=== PATIENT | female | born 1945 | race Caucasian/White ===

== ENCOUNTER 2018-07-09 11:33 | Inpatient (IN) ==
[2018-07-09] MEDS ORDERED: Metoprolol Tartrate 25 MG Tablet PO ONE (12:30)
[2018-07-09] MEDS ORDERED: Sodium Chlor 0.9% Inj 500 ML IV.CONT ONE (12:30)
[2018-07-09] MEDS ORDERED: Chlorhexidine Gluconate 2% 1 Pack (2 Cloths) TOPICAL ONE (12:30)
[2018-07-09] MEDS ORDERED: fentaNYL Citrate Inj 100 MCG/2 ML Ampul ONE (12:43)
[2018-07-09] MEDS ORDERED: fentaNYL Citrate Inj 250 MCG/5 ML Ampul ONE (12:43)
[2018-07-09] MEDS ORDERED: ceFAZolin Inj 1 GM in Sodium Chlor 0.9% Inj 100 ML IV.SIG SCH (13:00)
[2018-07-09] MEDS ORDERED: Glycopyrrolate Inj 1 MG/5 ML Syringe IV.PUSH ONE (13:35)
[2018-07-09] MEDS ORDERED: Phenylephrine/NS 1000 MCG/10ML Syringe IV.PUSH ONE (13:35)
[2018-07-09] MEDS ORDERED: Lidocaine PF 1% Inj 5 ML Syringe OTHER ONE (13:35)
[2018-07-09] MEDS ORDERED: Neostigmine Inj 5 MG/5 ML Syringe IV.PUSH ONE (13:35)
[2018-07-09] MEDS ORDERED: Lidocaine 1% Inj 50 ML Vial ONE (14:00)
[2018-07-09] MEDS ORDERED: Sugammadex Inj 200 MG/2 ML Vial IV.PUSH ONE (14:45)
[2018-07-09] MEDS ORDERED: Potassium Chlor 40 mEq Premix 40 MEQ/100 ML PIGGYBACK IV.SIG PRN (14:49)
[2018-07-09] MEDS ORDERED: Potassium Chlor 20 mEq Premix 20 MEQ/100 ML PIGGYBACK IV.SIG PRN (14:49)
[2018-07-09] MEDS ORDERED: *morphine SULFATE 4 MG/ML PERIprocedure ONLY ONE (15:23)
[2018-07-09] MEDS ORDERED: KCL 20 mEq/D5W/LR Inj 1,000 ML ONE (15:47)
[2018-07-09] MEDS: KCL 20 mEq/D5W/LR Inj 1,000 ML IV.CONT SCH (15:48)
[2018-07-09] MEDS: Dextrose 5%/NaCl 0.9% Inj 1,000 ML IV.SIG SCH ×2 (15:51→20:12)
[2018-07-09 16:00] LABS: Baso % (Auto) 0.3 % (0.0-2.0); Eos # (Auto) 0.1 th/mm3 (0.0-0.4); Eos % (Auto) 0.8 % (0.0-4.0); Hemoglobin 11.2 gm/dL (11.6-15.3); Lymph # (Auto) 1.6 th/mm3 (1.0-4.8); Lymph % (Auto) 18.3 % (9.0-44.0); Mean Corpuscular Hemoglobin 30.5 pg (27.0-34.0); Mean Corpuscular Volume 89.9 fL (80.0-100.0); Mean Platelet Volume 8.2 fL (7.0-11.0); Mono # (Auto) 0.6 th/mm3 (0.0-0.9); Neut # (Auto) 6.3 th/mm3 (1.8-7.7); Neut % (Auto) 73.6 % (16.0-70.0); Platelet Count 257 th/mm3 (150-450); Red Blood Count 3.67 mil/mm3 (4.00-5.30); Red Cell Distribution Width 13.2 % (11.6-17.2); White Blood Count 8.5 th/mm3 (4.0-11.0)
[2018-07-09 16:16] LABS: Carbon Dioxide 25.4 meq/L (21.0-32.0)
--- NOTE | 2018-07-09 16:49 | MP ---
cc: Jl Marie MD,Jl Dowd,Reji Domínguez,David MILLAN DATE OF OPERATION: 07/09/2018 PREOPERATIVE DIAGNOSIS: Rectal prolapse. POSTOPERATIVE DIAGNOSIS: Rectal prolapse. PROCEDURE PERFORMED: Altemeier perineal proctectomy. ANESTHESIA: General endotracheal. SURGEON: Jl Marie MD [employer] INSPECTOR: Kashif Fernandez MD ESTIMATED BLOOD LOSS: Minimal. OPERATIVE FINDINGS: This 73-year-old patient had a rectal prolapse about 8 years ago and was treated by me with an Altemeier perineal proctectomy. At that time, we took about close to 2 feet of rectum and colon from the perineum. She did well for 8 years, but has remained constipated through the years and has been on stool softeners, but has not really changed her constipation at all. She was seen in the office with a recurrent rectal prolapse. Again, it was a full rectal prolapse, approximately 4 inches. At surgery, a perineal rectosigmoidectomy was done of about 4-6 inches of the colon and anastomosis was done. OPERATIVE TECHNIQUE: The patient was placed on the table in the supine position. After adequate general endotracheal anesthesia, the legs were placed in exaggerated lithotomy position [facility]. The perineum and perianal region and buttocks were prepped and draped in the usual manner. The rectum was prolapsed and then injected circumanally around the dentate line with 1% Xylocaine with epinephrine injecting 40 mL circumferentially. Next, the mucosa was incised at the dentate line with electrocautery going through the mucosa and bowel wall and eventually entering the cul-de-sac anteriorly. Once this was done, the colon was disconnected circumferentially and then the remainder of the prolapsing colon was prolapsed out of the perineum. Several large appendices epiploicae were excised with electrocautery and then the mesentery was successively clamped, cut, and ligated, putting traction on the sigmoid colon. Once we were certain that the sigmoid colon was prolapsed to its full extent and there was no redundancy left in the sigmoid colon, the mesentery was divided at the level of the anal muscles. Next, the bowel was reanastomosed to the levator muscles after plicating the levator muscles posteriorly in a parked postanal repair fashion using several interrupted 0 Vicryl [id number]-vi-kwpld sutures. Once this was done, the anastomosis was done anteriorly and posteriorly with interrupted 3-0 Vicryl gexjli-zl-iclgv sutures and then laterally with interrupted 3-0 Vicryl yrkrwk-gs-lzuaw sutures. Then, each quadrant was sutured with interrupted 3-0 Vicryl kqwuev-dw-jdfsv sutures, creating the coloanal anastomosis. Once this was completed, the bowel viability was excellent and there was no tension on the anastomosis. Dressings were applied. Sponge and instrument counts were reported as correct. Estimated blood loss was minimal. The patient tolerated the procedure well and left the operating room in good condition. MD MANDY Parrish/fox , 03:19 PM , 03:25 PM
[2018-07-09] MEDS: Hydroxychloroquine 200 MG Tablet PO SCH (20:14)
[2018-07-09] MEDS ORDERED: VERAPAMIL 360 MG PO SCH (21:00)
[2018-07-09] MEDS ORDERED: Zolpidem Tartrate 5 MG Tablet PO PRN (21:00)
[2018-07-09] MEDS: ceFAZolin 2 GM Premix Inj 2 GM/50 ML PIGGYBACK IV.SIG SCH (22:23)
[2018-07-09] MEDS: Morphine Inj 4 MG/ML Vial IV.PUSH PRN (22:40)
[2018-07-09 23:09] LABS: Alanine Aminotransferase 20 U/L (10-53); Albumin 3.2 g/dL (3.4-5.0); Alkaline Phosphatase 59 U/L (45-117); Anion Gap 6 meq/L (5-15); Aspartate Aminotransferase 18 U/L (15-37); Blood Urea Nitrogen 13 mg/dL (7-18); Calcium 7.9 mg/dL (8.5-10.1); Chloride 109 meq/L (98-107); Glomerular Filtration Rate 78 mL/min (>89); Glucose,Random 153 mg/dL (74-106); Potassium 4.1 meq/L (3.5-5.1); Sodium 141 meq/L (136-145); Total Protein 6.3 g/dL (6.4-8.2)
[2018-07-10] MEDS: KCL 20 mEq/D5W/LR Inj 1,000 ML IV.CONT SCH ×5 (00:26→15:13)
[2018-07-10] MEDS: Morphine Inj 4 MG/ML Vial IV.PUSH PRN ×5 (02:28→12:19)
[2018-07-10] MEDS: Dextrose 5%/NaCl 0.9% Inj 1,000 ML IV.SIG SCH ×2 (03:46→11:50)
[2018-07-10 04:29] LABS: Hematocrit 33.6 % (35.0-46.0); Hemoglobin 11.4 gm/dL (11.6-15.3); Lymph # (Auto) 0.6 th/mm3 (1.0-4.8); Lymph % (Auto) 6.9 % (9.0-44.0); Mean Corpuscular HGB Conc 33.8 % (32.0-36.0); Mean Corpuscular Hemoglobin 29.9 pg (27.0-34.0); Mean Corpuscular Volume 88.6 fL (80.0-100.0); Mean Platelet Volume 8.1 fL (7.0-11.0); Mono # (Auto) 0.6 th/mm3 (0.0-0.9); Mono % (Auto) 7.4 % (0.0-8.0); Neut # (Auto) 7.4 th/mm3 (1.8-7.7); Neut % (Auto) 85.7 % (16.0-70.0); Platelet Count 270 th/mm3 (150-450); Red Cell Distribution Width 13.4 % (11.6-17.2); White Blood Count 8.6 th/mm3 (4.0-11.0)
[2018-07-10] MEDS: ceFAZolin 2 GM Premix Inj 2 GM/50 ML PIGGYBACK IV.SIG SCH ×2 (05:16→15:12)
[2018-07-10] MEDS: Lisinopril 20 MG Tablet PO SCH (08:00)
[2018-07-10] MEDS: Tolterodine Tartrate LA 4 MG Capsule PO SCH (08:00)
[2018-07-10] MEDS: Sertraline 100 MG Tablet PO SCH (08:00)
[2018-07-10] MEDS: Verapamil SR 240 MG Tablet PO SCH (08:01)
[2018-07-10] MEDS: Hydroxychloroquine 200 MG Tablet PO SCH ×2 (08:01→22:03)
[2018-07-10] MEDS: Doxazosin 1 MG Tablet PO SCH (08:01)
[2018-07-10] MEDS: Pantoprazole Inj 40 MG Vial IV.PUSH SCH (08:02)
[2018-07-10] MEDS ORDERED: Estrogens Congugated Vag Cream w/app 30 GM Tube VAGINAL SCH (09:00)
[2018-07-10] MEDS ORDERED: SOLIFENACIN 5 MG PO SCH (09:00)
[2018-07-10] MEDS: predniSONE 10 MG Tablet PO SCH ×2 (14:42→22:03)
--- NOTE | 2018-07-10 15:03 | P.PNCS ---
Subjective Colorectal Surgery Post Op Day #: 1 Interval history: No N or V. Tolerating FLD. No BMs. Lyn D/C'd Objective Result Diagrams: 07/10/18 04:00 07/09/18 22:17 Objective Remarks: Abd: soft,flat Rectum: not examined. Assessment and Plan - Plan Advance diet Transfer to floor Probable D/C tomorrow
[2018-07-11 05:09] LABS: Baso % (Auto) 0.5 % (0.0-2.0); Eos # (Auto) 0.1 th/mm3 (0.0-0.4); Eos % (Auto) 1.6 % (0.0-4.0); Hematocrit 32.9 % (35.0-46.0); Hemoglobin 10.8 gm/dL (11.6-15.3); Lymph # (Auto) 1.8 th/mm3 (1.0-4.8); Lymph % (Auto) 19.8 % (9.0-44.0); Mean Corpuscular Volume 90.9 fL (80.0-100.0); Mean Platelet Volume 8.2 fL (7.0-11.0); Mono % (Auto) 11.5 % (0.0-8.0); Neut # (Auto) 5.9 th/mm3 (1.8-7.7); Neut % (Auto) 66.6 % (16.0-70.0); Platelet Count 244 th/mm3 (150-450); Red Blood Count 3.62 mil/mm3 (4.00-5.30); Red Cell Distribution Width 13.4 % (11.6-17.2); White Blood Count 8.9 th/mm3 (4.0-11.0)
[2018-07-11 05:39] LABS: Calcium 8.2 mg/dL (8.5-10.1); Carbon Dioxide 27.2 meq/L (21.0-32.0); Potassium 3.9 meq/L (3.5-5.1)
[2018-07-11] MEDS: KCL 20 mEq/D5W/LR Inj 1,000 ML IV.CONT SCH (07:51)
[2018-07-11] MEDS: Doxazosin 1 MG Tablet PO SCH (08:10)
[2018-07-11] MEDS: Tolterodine Tartrate LA 4 MG Capsule PO SCH (08:11)
[2018-07-11] MEDS: predniSONE 10 MG Tablet PO SCH (08:11)
[2018-07-11] MEDS: Lisinopril 20 MG Tablet PO SCH (08:14)
[2018-07-11] MEDS: Pantoprazole Inj 40 MG Vial IV.PUSH SCH (08:14)
[2018-07-11] MEDS: Hydroxychloroquine 200 MG Tablet PO SCH (08:14)
[2018-07-11] MEDS: Verapamil SR 240 MG Tablet PO SCH (08:15)
[2018-07-11] MEDS: Sertraline 100 MG Tablet PO SCH (08:15)
--- NOTE | 2018-07-11 08:17 | P.PNCS ---
Subjective Colorectal Surgery Post Op Day #: 2 Interval history: s/p [place] comfotable, wants to go home Objective Result Diagrams: 07/11/18 04:15 07/11/18 04:15 Objective Remarks: Abd: soft,flat Rectum: not examined. Assessment and Plan - Plan Doing well Home today Followup with Dr. Marie 3 weeks
--- NOTE | 2018-07-13 14:49 | MD ---
cc: Jl Marie MD DATE OF DISCHARGE: 07/11/2018 ADMITTING DIAGNOSIS: Rectal prolapse. DISCHARGE DIAGNOSIS: Rectal prolapse. LABORATORY DATA: Pathology report on the removed specimen is not reported as of yet. HOSPITAL COURSE: The patient was admitted to the hospital on 07/09/2018 for recurrent rectal prolapse. She had a rectal prolapse repair with an Altemeier perineal proctosigmoidectomy about 8 years ago. At that time, we took close to 2 feet of rectum and colon from the perineum. She did well for 8 years, but remained constipated through the years and has been on stool softeners; has not really changed her constipation at all. She was seen in the office with recurrent rectal prolapse. She underwent a repeat Altemeier perineal proctectomy on 07/09/2018 and on the first postoperative day, she did well and was started on a full liquid diet. On the second postoperative day, she was started on a regular diet and was discharged from the hospital in good condition. She was instructed to do no driving for 2 weeks, do no heavy lifting over 10 pounds for 6 weeks and to call me with any problems. She was instructed to followup with me in the office in 2-3 weeks' time. Jl Marie MD JTT/malachi , 12:41 PM , 12:46 PM
== END 2018-07-11 12:12 | disposition home or self-care (01) | DRG 331 ==
LOC: HSDI 11:33 → HCPC 16:54
PROVIDERS: ADMIT Colon & Rectal Surgery; ATTEND Colon & Rectal Surgery
CPT/HCPCS: 80048; 80053; 85025; 86850; 86900; 86901; 88307; 94150; C9113; J0690; J1100; J2270; J2370; J2405; J2704; J2710; J3010; J3480; J7120